=== PATIENT | male | born 1995 | race Caucasian/White ===

== ENCOUNTER 2016-11-07 19:11 | Emergency (ER) | payer SELFPAY ==
[~2016-11-07] VITALS: Ht 180.3 cm; Wt 60.0 kg
[2016-11-07] MEDS ORDERED: HYDROmorphone 1 MG/ML, 1ML ONE ×2 (19:58→20:33)
[2016-11-07] MEDS ORDERED: ONDANSETRON ODT 4 MG ONE (19:58)
[2016-11-07] MEDS ORDERED: ETOMIDATE 20 MG/10 ML ONE (20:16)
[2016-11-07] MEDS ORDERED: ONDANSETRON ODT 4 MG PO ONE (20:30)
[2016-11-07] MEDS ORDERED: SODIUM CHLORIDE FLUSH 10ML SYR IVF ONE (20:30)
[2016-11-07] MEDS ORDERED: HYDROmorphone 1 MG/ML, 1ML IM ONE (20:30)
[2016-11-07] MEDS ORDERED: ETOMIDATE 40 MG/20 ML IVPush ONE (20:30)
[2016-11-07] MEDS ORDERED: QUET50TA5 PO (20:55)
[2016-11-07] MEDS ORDERED: HYDROmorphone 1 MG/ML, 1ML IV ONE (21:00)
[2016-11-07 21:49] VITALS: BP 109/61
== END 2016-11-07 21:52 | disposition home or self-care (01) ==
LOC: ED 21:40
DX: S43.004A Unspecified dislocation of right shoulder joint, initial encounter (principal); X58.XXXA Exposure to other specified factors, initial encounter; Y93.89 Activity, other specified; Y92.89 Other specified places as the place of occurrence of the external cause; Y99.9 Unspecified external cause status
CPT/HCPCS: 23650; 73020; 96372; 96374; 99152; 99285; J1170; Q0162